=== PATIENT | male | born 1945 | race Two or more races ===

== ENCOUNTER 2021-04-06 03:29 | Emergency (ER) | payer MEDICARE, OTHER ==
[~2021-04-06] VITALS: Ht 180.3 cm; Wt 75.3 kg
--- NOTE | 2021-04-06 03:35 | NUR ---
PATIENT [id number]. PATIENT FOUND ON [facility]. PATIENT HAS BEEN REPORTED MISSING SINCE 3PM TODAY. NO MEDICAL COMPLAINTS NOTED. PATIENT A/O X 1-2, RR EVEN AND UNLABORED, NO SOB NOTED. PATIENT IN NO ACUTE DISTRESS AT THIS TIME. PATIENT CONNECTED TO MONITOR.
--- NOTE | 2021-04-06 03:39 | NUR ---
PER OFFICER [id number] REMBERTOD, PT CARETAKERS NAME IS DIANNE DOYLE. ADDRESSE TO FACILITY IS [address] [place] [address]. DIANNE PHONE NUMBER IS [phone]. PT WAS REPORTED MISSING FROM 1500 TO 0330.
--- NOTE | 2021-04-06 04:42 | NUR ---
SPOKE WITH THE CAREGIVER FOR THE PT. ETA IS ONE HOUR FOR PICKUP. PER CAREGIVER, PT BASELINE MENTAL STATUS FLUCTUATES AND PT FREQUENTLY GETS CONFUSED AND DISORIENTED.
--- NOTE | 2021-04-06 06:09 | NUR ---
ATTEMPTED TO FOLLOW UP WITH CAREGIVER DIANNE. CALL WAS DENIED.
--- NOTE | 2021-04-06 07:26 | NUR ---
PT WILL BE TRANSPORTED BACK TO FACILITY IN 1 HOUR VIA [facility].
--- NOTE | 2021-04-06 09:29 | NUR ---
THE PATIENT IS TRANSFERED TO ASSIGNED FACILITY IN STABLE CONDITION VIA ARRANGED TRANSPO.
[2021-04-06 09:30] VITALS: BP 133/75
== END 2021-04-06 09:31 ==
LOC: ER 03:32
DX: Z71.1 Person with feared health complaint in whom no diagnosis is made (principal); E11.9 Type 2 diabetes mellitus without complications